=== PATIENT | female | born 1990 | race Two or more races ===

== ENCOUNTER 2025-03-23 20:16 | Emergency (ER) | payer OTHER ==
[~2025-03-23] VITALS: Ht 162.6 cm; Wt 61.2 kg
[2025-03-23 22:04] LABS: PLATELET COUNT (AUTO) 288 K/uL (150-450); RED BLOOD CELL COUNT(AUTO) 3.87 MIL/uL (4.0-5.2); RED CELL DISTRIBUTION WIDTH 12.8 % (11.5-15.0); WHITE BLOOD COUNT (AUTO) 14.8 K/uL (4.3-11.0)
[2025-03-23 22:10] LABS: CALCIUM, SERUM 9.0 mg/dL (8.5-10.1); CREATININE 0.7 mg/dL (0.6-1.3); SODIUM SERUM 137.0 mmol/L (136-145); UREA NITROGEN, BLOOD 20.0 mg/dL (7-18)
[2025-03-23 22:16] LABS: ASPARTATE AMINOTRANSFERASE 33.0 U/L (15-37); TOTAL PROTEIN, SERUM 8.2 g/dL (6.4-8.2)
[2025-03-23] MEDS ORDERED: ONDANSETRON HCL/PF 4 MG/2 ML VIAL ONE (22:23)
[2025-03-23] MEDS ORDERED: FAMOTIDINE/PF INJ 20 MG/2 ML VIAL IV ONE (22:23)
[2025-03-23] MEDS: ONDANSETRON HCL/PF 4 MG/2 ML VIAL IVP ONE (22:30)
[2025-03-23] MEDS: FAMOTIDINE/PF INJ 20 MG/2 ML VIAL IV ONE (22:30)
[2025-03-23] MEDS: IV NS 0.9% 1,000 ML BAG IV ONE (22:30)
[2025-03-24] MEDS ORDERED: ONDA4TAB5 PO (00:58)
[2025-03-24 01:49] VITALS: BP 125/70; TEMP 98; O2SAT 100
== END 2025-03-24 01:50 | disposition home or self-care (01) ==
LOC: ER 20:18
DX: R11.10 Vomiting, unspecified (principal)
CPT/HCPCS: 99284; 96374; 96361; 96375; 85025; 83690; 36415; 80053; J1308; J2405; J7030